=== PATIENT | male | born 1965 | race Caucasian/White ===

== ENCOUNTER 2020-01-23 08:55 | Day surgery (SDC) | payer OTHER ==
[~2020-01-23 08:55] MED LIST: Lactated Ringers 1,000 ML IV SCH; Lidocaine 1%/Sod Bicarbonate in NS 8.4% 1 ML Syringe IDERM PRN; Sodium Chloride 0.9% 10 ML Syringe FLUSH PRN
[2020-01-23] MEDS ORDERED: Bupivacaine 0.5%/EPINEPHrine 1:200,000 50 ML MDV ONE (09:06)
--- NOTE | 2020-01-23 09:47 | PCM.PREANE ---
Preanesthetic Assessment - Procedure Proposed Procedure: Laparoscopic Hernia Repair and Colonoscopy - Anesthesia/Transfusion/Family Hx Anesthesia History: Prior Anesthesia Without Reaction Family History of Anesthesia Reaction: No - Review of Systems General: No Symptoms Pulmonary: No Symptoms, Other (At one point was diagnosed with Sleep Apnea and wore a CPAP for six months. Does not have his machine anymore. Had a home sleep study and felt he didn't need it anymore. ) Cardiovascular: Dyspnea on Exertion (chronic, multifactoral, lasix daily. ECHO done with EF 54%, diastolic dysfunction. ), Other (DE in 2012, stents x2. Cleared by Cardiology for Surgery. ) Gastrointestinal: Abdominal Pain (hernia) Neurological: Pre-Existing Deficit (Chronic Back Pain, back surgery with improvement in pain. ) Other: Reports: None (Obesity: BMI 42. ), Diabetes (Blood glucose 90mg/dl, Type II. ) - Physical Assessment NPO Status Date: 01/23/20 NPO Status Time: 21:00 Vital Signs: Last Vital Signs Temp 36.3 C 01/23/20 09:00 Pulse 54 L 01/23/20 09:00 Resp 16 01/23/20 09:00 BP 119/76 01/23/20 09:00 Pulse Ox 97 01/23/20 09:00 Height: 1.7 m Weight: 122.924 kg ASA Class: 3 Mental Status: Alert & Oriented x3 Airway Class: Mallampati = 3 Dentition: Reports: Missing Tooth/Teeth (All upper teeth missing. ) Thyro-Mental Finger Breadths: 3 Mouth Opening Finger Breadths: 3 ROM/Head Extension: Full Lungs: Clear to Auscultation, Normal Respiratory Effort Cardiovascular: Regular Rate, Regular Rhythm - Lab Values: Laboratory Last Values POC Glucose 90 mg/dL (70-105) 01/23/20 09:16 - Allergies Allergies/Adverse Reactions: Allergies Allergy/AdvReac Type Severity Reaction Status Date / Time codeine Allergy Rash Verified 01/22/20 13:05 meloxicam Allergy Shortness Verified 01/22/20 13:05 of Breath tramadol Allergy Shaking Verified 01/22/20 13:05 - Anesthesia Plan Pre-Op Medication Ordered: Beta Giana Beta Giana: Metoprolol Med Last Dose Date: 01/23/20 Med Last Dose Time: 21:00 - Acknowledgements Anesthesia Type Planned: General Anesthesia Pt an Appropriate Candidate for the Planned Anesthesia: Yes Alternatives and Risks of Anesthesia Discussed w Pt/Guardian: Yes Pt/Guardian Understands and Agrees with Anesthesia Plan: Yes PreAnesthesia Questionnaire HEENT History: Reports: Impaired Vision, Other (See Below) Other HEENT History: wears glasses Cardiovascular History: Reports: Aneurysm, Arrhythmia, CAD, Cardiomyopathy, Heart Failure, Heart Murmur, High Cholesterol, Hypertension, DE, Stents, Other (See Below) Other Cardiovascular History: arrhythmia, palpitations, valvular heart disease Respiratory History: Reports: Sleep Apnea, SOB Gastrointestinal History: Reports: Other (See Below) Other Gastrointestinal History: umbilical hernia, AAA Genitourinary History: Reports: None LEAD SOFTWARE ARCHITECT History: Reports: None Musculoskeletal History: Reports: Arthritis, Back Pain, Chronic Neurological History: Reports: None Psychiatric History: Reports: Depression Endocrine/Metabolic History: Reports: Diabetes, Type II, Obesity/BMI 30+ Hematologic History: Reports: None Immunologic History: Reports: None Oncologic (Cancer) History: Reports: None Dermatologic History: Reports: None - Infectious Disease History Infectious Disease History: Reports: None - Past Surgical History Head Surgeries/Procedures: Reports: None Cardiovascular Surgical History: Reports: None Respiratory Surgical History: Reports: None GI Surgical History: Reports: None Female Surgical History: Reports: None Male Surgical History: Reports: None Endocrine Surgical History: Reports: None Neurological Surgical History: Reports: Laminectomy Musculoskeletal Surgical History: Reports: None Oncologic Surgical History: Reports: None Dermatological Surgical History: Reports: None - SUBSTANCE USE Smoking Status *Q: Former Smoker Recreational Drug Use History: No - HOME MEDS Home Medications: Home Meds Albuterol [Proair HFA] 1 - 2 puff INH Q4H PRN 01/22/20 [History] Aspirin 81 mg PO BID 01/22/20 [History] Empagliflozin [Jardiance] 25 mg PO DAILY 01/22/20 [History] Fish Oil/[place]-3 Fatty Acids [Fish Oil 1,000 MG] 2 gm PO DAILY 01/22/20 [History] Furosemide [Lasix] 40 mg PO DAILY 01/22/20 [History] Insulin Glarg,Human.Rec.Analog [Lantus] 70 units SQ BID 01/22/20 [History] Isosorbide Mononitrate [Imdur] 60 mg PO DAILY 01/22/20 [History] Magnesium 250 mg PO DAILY 01/22/20 [History] Metoprolol Tartrate 100 mg PO BID 01/22/20 [History] Multivitamin 1 tab PO DAILY 01/22/20 [History] Rosuvastatin Calcium 20 mg PO DAILY 01/22/20 [History] Sertraline [Zoloft] 100 mg PO DAILY 01/22/20 [History] Tamsulosin HCl [Flomax] 0.4 mg PO DAILY 01/22/20 [History] lisinopriL [Lisinopril] 40 mg PO DAILY 01/22/20 [History] metFORMIN HCl [Metformin HCl] 1,000 mg PO BID 01/22/20 [History] traZODone HCl [Trazodone HCl] 100 mg PO BEDTIME 01/22/20 [History] - CURRENT (IN HOUSE) MEDS Current Meds: Current Medications Lactated Ringer's (Ringers, Lactated) 1,000 mls @ 125 mls/hr IV ASDIRECTED OMKAR Stop: 01/23/20 23:00 Last Admin: 01/23/20 09:20 Dose: 125 mls/hr Documented by: Lidocaine/Sodium Bicarbonate (Buffered Lidocaine 1% In Ns 8.4%) 0.25 ml IDERM ONETIME PRN PRN Reason: Prior to IV Start Stop: 01/23/20 18:00 Last Admin: 01/23/20 09:18 Dose: 0.25 ml Documented by: Sodium Chloride (Saline Flush) 10 ml FLUSH ASDIRECTED PRN PRN Reason: Keep Vein Open Stop: 01/23/20 18:00 Discontinued Medications Bupivacaine HCl/Epinephrine Bitart (Marcaine 0.5%/Epinephrine 1:200,000) Confirm Administered Dose 50 ml .ROUTE .STK-MED ONE Stop: 01/23/20 09:07
[2020-01-23] MEDS ORDERED: Midazolam 1 MG/ML 2 ML SDV ONE (09:50)
[2020-01-23] MEDS ORDERED: Ondansetron 4 MG/2 ML SDV ONE ×3 (09:50→11:18)
[2020-01-23] MEDS ORDERED: Propofol 200 MG/20 ML SDV ONE (09:50)
[2020-01-23] MEDS ORDERED: Rocuronium 50 MG/5 ML Vial ONE (09:50)
[2020-01-23] MEDS ORDERED: fentaNYL 250 MCG/5 ML SDV ONE (09:51)
[2020-01-23] MEDS ORDERED: Lidocaine 1% 4 ML ONE (09:51)
[2020-01-23] MEDS ORDERED: ePHEDrine Sulfate/0.9% NaCl/Pf 25 MG/5 ML SYRINGE IV ONE ×2 (10:29→11:07)
[2020-01-23] MEDS ORDERED: HYDROmorphone 0.5 MG/0.5 ML Syringe ONE (11:42)
[2020-01-23] MEDS ORDERED: fentaNYL 100 MCG/2 ML SDV IVPUSH PRN (11:49)
[2020-01-23] MEDS ORDERED: HYDROmorphone 0.5 MG/0.5 ML Syringe IVPUSH PRN (11:49)
--- NOTE | 2020-01-23 12:50 | PCM.POSTAN ---
POST ANESTHESIA ASSESSMENT - MENTAL STATUS Mental Status: Alert, Oriented - VITAL SIGNS Vital Signs: Last Vital Signs Temp 97.1 F 01/23/20 12:41 Pulse 54 L 01/23/20 09:00 Resp 16 01/23/20 12:41 BP 125/45 L 01/23/20 12:41 Pulse Ox 97 01/23/20 12:41 - RESPIRATORY Respiratory Status: Respiratory Rate WNL, Airway Patent, O2 Saturation Stable, Supplemental Oxygen - CARDIOVASCULAR CV Status: Pulse Rate WNL, Blood Pressure Stable - GASTROINTESTINAL GI Status: No Symptoms - PAIN Pain Score: 0 - POST OP HYDRATION Hydration Status: Adequate & Stable
[2020-01-23] MEDS ORDERED: Ketorolac 30 MG/ML SDV IVPUSH ONE (13:47)
--- NOTE | 2020-01-23 14:39 | PCM48HPAN ---
Post Anesthesia Note - EVALUATION WITHIN 48HRS OF ANESTHETIC Vital Signs in Normal Range: Yes Patient Participated in Evaluation: Yes Respiratory Function Stable: Yes (still requires O2 2L NC ) Airway Patent: Yes Cardiovascular Function Stable: Yes Hydration Status Stable: Yes Pain Control Satisfactory: Yes Nausea and Vomiting Control Satisfactory: Yes Mental Status Recovered: Yes Vital Signs: Last Vital Signs Temp 97.9 F 01/23/20 14:15 Pulse 74 01/23/20 14:15 Resp 12 01/23/20 14:15 BP 111/68 01/23/20 14:15 Pulse Ox 95 01/23/20 14:15 - COMMENTS/OBSERVATIONS Free Text/Narrative:: No anesthesia complications noted. Patient is going for an extended floor recovery
[2020-01-23] MEDS ORDERED: oxyCODONE 5 MG Tab PO PRN (14:54)
--- NOTE | 2020-01-24 08:30 | PCM.PRNOTE ---
- Free Text/Narrative Note: Date: 01/24/2020 Operation: screening colonoscopy, laparoscopic umbilical hernia repair with mesh Surgeon: Rock Ayala MD Findings: Poor colon prep. 2.5 cm umbilical hernia with incarcerated visceral fat. Detailed Report: The patient was taken to the OR and placed supine. Time out was performed and general endotracheal anesthesia initiated. The abdominal hair was clipped and the abdomen prepped and draped in usual sterile fashion. A Veress needle was inserted at the LUQ for insufflation. Once pressure of 15 mm Hg was reached, pneumoperitoneum was aspirated at the left lateral abdomen. A bladed 5 mm port was inserted at this site, and the 5 mm 30 degree laparoscope inserted. Veress placement resulted in no inadvertent injury, and the needle was removed. Additional 5 mm ports were placed at the LLQ and LUQ. Omental and lipomatous fat was reduced from the umbilical hernia site. Most of the hernia sac was excised as well using the Ligasure. The defect measured 2.5 cm in diameter. A 10 x 15 cm biologic coated permanent mesh was brought onto the field, and anchoring 0 vicryl sutures were placed at the 12, 3, 6, and 9 o'clock positions. The mesh was rolled up and introduced into the abdomen through a 12 mm port that was placed at the umbilicus through the fascial defect. With the mesh in the abdom en, the 12 mm port was removed and the hernia defect was closed transversely with four interrupted 0 PDS sutures placed using the PMI laparoscopic suture passer. Next, the mesh was unfolded and oriented transversely. The 12 mm port was reinserted at a site at the right upper quadrant. The transfascial sutures were secured through small stab incisions in the skin using the PMI suture passer. The mesh appeared to lay nicely, covering the defect. Spaces between the anchoring sutures were tacked to the abdominal wall using the Secure Strap. The RUQ 12 mm port site was closed at the level of fascia using the PMI laparoscopic suture passer and 0 vicryl suture. A total of 50 cc 0.5% marcaine with epinephrine was injected for local anesthetic throughout the case. Ports were removed under laparoscopic visualization and pneumoperitoneum released. All skin incisions were closed with absorbable subcuticular suture and dressed with dermabond. The patient tolerated the procedure well.
[2020-01-24] MEDS ORDERED: Albuterol 6.7 GM Inhaler INH PRN (08:41)
[2020-01-24] MEDS ORDERED: Rosuvastatin 10 MG Tab PO SCH (09:00)
[2020-01-24] MEDS ORDERED: Metoprolol Tartrate 50 MG Tab PO SCH (09:00)
[2020-01-24] MEDS ORDERED: Magnesium Oxide 400 MG Tab PO SCH (09:00)
[2020-01-24] MEDS ORDERED: Aspirin 81 MG Tab.Chew PO SCH (09:00)
[2020-01-24] MEDS ORDERED: Sertraline 50 MG Tab PO SCH (09:00)
[2020-01-24] MEDS ORDERED: Tamsulosin 0.4 MG Cap.ER PO SCH (09:00)
[2020-01-24] MEDS ORDERED: Furosemide 40 MG Tab PO SCH (09:00)
[2020-01-24] MEDS ORDERED: metFORMIN 500 MG Tab PO SCH (09:00)
[2020-01-24] MEDS ORDERED: Isosorbide Mononitrate 60 MG Tab.ER PO SCH (09:00)
[2020-01-24] MEDS ORDERED: Lisinopril 20 MG Tab PO SCH (09:00)
[2020-01-24] MEDS ORDERED: traZODone 50 MG Tab PO SCH (21:00)
--- NOTE | 2020-01-31 08:43 | PCM.PRNOTE ---
- Free Text/Narrative Note: Procedure: screening colonoscopy Detailed Report: Following laparoscopic hernia repair, the patient was positioned for colonoscopy while intubated. The anus appeared normal and digital exam was unremarkable. The prep was very poor. The scope was advanced to about 60 cm, but given the quality of the prep no meaningful exam for polyps was possible. Air was evacuated and the scope withdrawn. The patient was then extubated and transferred to the recovery unit in good condition. Rock Ayala MD General Surgery
== END 2020-01-23 18:07 | disposition home or self-care (01) ==
LOC: JD.SDS 08:55 → JD.MS 15:11 → JD.SDS 18:07
PROVIDERS: ATTEND Surgery
DX: Z12.11 Encounter for screening for malignant neoplasm of colon (principal); K42.0 Umbilical hernia with obstruction, without gangrene; F41.9 Anxiety disorder, unspecified; I11.0 Hypertensive heart disease with heart failure; I50.9 Heart failure, unspecified; I25.10 Atherosclerotic heart disease of native coronary artery without angina pectoris; E11.9 Type 2 diabetes mellitus without complications; E66.9 Obesity, unspecified; Z88.5 Allergy status to narcotic agent; Z88.8 Allergy status to other drugs, medicaments and biological substances; Z79.82 Long term (current) use of aspirin; Z79.84 Long term (current) use of oral hypoglycemic drugs; Z79.899 Other long term (current) drug therapy; Z87.891 Personal history of nicotine dependence; Z68.41 Body mass index [BMI] 40.0-44.9, adult
CPT/HCPCS: 36415; 45330; 49653; 80053; 82962; A9270; C1781; J0171; J1170; J1885; J2001; J2250; J2370; J2405; J2704; J3010; J3490; J7120; 00790

== ENCOUNTER 2021-02-19 16:55 | Emergency (ER) | payer OTHER ==
[2021-02-19] MEDS ORDERED: Famotidine 20 MG/2 ML SDV IVPUSH PRN (18:03)
[2021-02-19] MEDS ORDERED: methylPREDNISolone Sodium Succinate 125 MG/2 ML SDV IVPUSH PRN (18:03)
[2021-02-19] MEDS ORDERED: diphenhydrAMINE 50 MG/ML SDV IVPUSH PRN (18:03)
[2021-02-19] MEDS ORDERED: EPINEPHrine 1 MG/ML SDV IM PRN (18:03)
[2021-02-19] MEDS ORDERED: Sodium Chloride 0.9% 10 ML Syringe FLUSH SCH (18:15)
--- NOTE | 2021-02-19 19:00 | EDM.PDOC ---
ED HPI GENERAL MEDICAL PROBLEM - General Chief Complaint: Respiratory Problem Stated Complaint: COVID +/WORSENING SYMPTOMS Time Seen by Provider: 02/19/21 17:33 Source of Information: Reports: Patient, RN Notes Reviewed History Limitations: Reports: No Limitations - History of Present Illness INITIAL COMMENTS - FREE TEXT/NARRATIVE: Patient is a 55-year-old male presenting to the emergency department with complaints of worsening Covid symptoms. Reports symptoms began 1 week ago. He was diagnosed yesterday at the drive-through testing. He complains of fever, chills, diarrhea, cough, shortness of breath. Denies any significant chest pain. He would like to receive treatment with monoclonal antibodies. - Related Data Allergies Allergy/AdvReac Type Severity Reaction Status Date / Time codeine Allergy Rash Verified 02/19/21 17:19 meloxicam Allergy Shortness Verified 02/19/21 17:19 of Breath tramadol AdvReac Shaking Verified 02/19/21 17:19 Home Meds: Home Meds Aspirin 81 mg PO BID 01/22/20 [History] Empagliflozin [Jardiance] 25 mg PO DAILY 01/22/20 [History] Insulin Glarg,Human.Rec.Analog [Lantus] 70 units SQ BID 01/22/20 [History] Isosorbide Mononitrate [Imdur] 60 mg PO DAILY 01/22/20 [History] Magnesium 250 mg PO DAILY 01/22/20 [History] Metoprolol Tartrate 100 mg PO BID 01/22/20 [History] Multivitamin 1 tab PO DAILY 01/22/20 [History] Rosuvastatin Calcium 20 mg PO DAILY 01/22/20 [History] Sertraline [Zoloft] 100 mg PO DAILY 01/22/20 [History] metFORMIN HCl [Metformin HCl] 1,000 mg PO BID 01/22/20 [History] traZODone HCl [Trazodone HCl] 100 mg PO BEDTIME 01/22/20 [History] dexAMETHasone [Decadron] 6 mg PO DAILY #4 tablet 02/19/21 [Rx] Past Medical History HEENT History: Reports: Impaired Vision, Other (See Below) Other HEENT History: wears glasses Cardiovascular History: Reports: Aneurysm, Arrhythmia, CAD, Cardiomyopathy, Heart Failure, Heart Murmur, High Cholesterol, Hypertension, [place], Stents, Other (See Below) Other Cardiovascular History: arrhythmia, palpitations, valvular heart disease Respiratory History: Reports: Sleep Apnea, SOB Gastrointestinal History: Reports: Other (See Below) Other Gastrointestinal History: umbilical hernia, AAA Genitourinary History: Reports: None MEDICAL REIMBURSEMENT SPECIALIST History: Reports: None Musculoskeletal History: Reports: Arthritis, Back Pain, Chronic Neurological History: Reports: None Psychiatric History: Reports: Depression Endocrine/Metabolic History: Reports: Diabetes, Type II, Obesity/BMI 30+ Hematologic History: Reports: None Immunologic History: Reports: None Oncologic (Cancer) History: Reports: None Dermatologic History: Reports: None - Infectious Disease History Infectious Disease History: Reports: None, Novel Coronavirus - Past Surgical History Head Surgeries/Procedures: Reports: None Cardiovascular Surgical History: Reports: None Respiratory Surgical History: Reports: None GI Surgical History: Reports: None Male Surgical History: Reports: None Endocrine Surgical History: Reports: None Neurological Surgical History: Reports: Laminectomy Musculoskeletal Surgical History: Reports: None Oncologic Surgical History: Reports: None Dermatological Surgical History: Reports: None Social & Family History - Tobacco Use Tobacco Use Status *Q: Never Tobacco User Second Hand Smoke Exposure: No - Caffeine Use Caffeine Use: Reports: None - Recreational Drug Use Recreational Drug Use: No ED ROS GENERAL - Review of Systems Review Of Systems: See Below Constitutional: Reports: Fever, Chills, Fatigue, Decreased Appetite HEENT: Reports: No Symptoms Respiratory: Reports: Shortness of Breath, Cough. Denies: Wheezing, Pleuritic Chest Pain Cardiovascular: Reports: Dyspnea on Exertion. Denies: Chest Pain, Lightheadedness Endocrine: Reports: No Symptoms GI/Abdominal: Reports: Diarrhea. Denies: Abdominal Pain, Nausea, Vomiting : Reports: No Symptoms Musculoskeletal: Reports: No Symptoms Skin: Reports: No Symptoms Neurological: Denies: Confusion, Dizziness Psychiatric: Reports: No Symptoms Hematologic/Lymphatic: Reports: No Symptoms Immunologic: Reports: No Symptoms ED EXAM, GENERAL - Physical Exam Exam: See Below Exam Limited By: No Limitations General Appearance: Alert, WD/WN, No Apparent Distress Respiratory/Chest: No Respiratory Distress, Lungs Clear, Normal Breath Sounds, No Accessory Muscle Use, Chest Non-Tender, Other (harsh cough with deep breathing) Cardiovascular: Normal Peripheral Pulses, Regular Rate, Rhythm, No Edema, No Gallop, No JVD, No Murmur, No Rub GI/Abdominal: Normal Bowel Sounds, Soft, Non-Tender, No Organomegaly, No Distention, No Abnormal Bruit, No Mass Neurological: Alert, Oriented, CN II-XII Intact, Normal Cognition, Normal Gait, Normal Reflexes, No Motor/Sensory Deficits Psychiatric: Normal Affect, Normal Mood Skin Exam: Warm, Dry, Intact, Normal Color, No Rash Course - Vital Signs Last Recorded V/S: Last Vital Signs Temp 96.9 F 02/19/21 17:18 Pulse 68 02/19/21 17:18 Resp 18 02/19/21 17:18 BP 176/73 H 02/19/21 17:18 Pulse Ox 95 02/19/21 17:18 - Orders/Labs/Meds Orders: Active Orders 24 hr Category Date Time Status Vital Signs [RC] Q15M Care 02/19/21 18:03 Active Chest 1V Frontal [CR] Stat Exams 02/19/21 17:34 Taken EPINEPHrine [Adrenalin] Med 02/19/21 18:03 Active 0.3 mg IM ONETIME PRN Famotidine [Pepcid] Med 02/19/21 18:03 Active 20 mg IVPUSH ONETIME PRN Sodium Chloride 0.9% [Saline Flush] Med 02/19/21 18:15 Active 30 ml FLUSH ASDIRECTED diphenhydrAMINE [Benadryl] Med 02/19/21 18:03 Active 50 mg IVPUSH ONETIME PRN methylPREDNISolone Sod Succ [Solu-MEDROL] Med 02/19/21 18:03 Active 125 mg IVPUSH ONETIME PRN Medication Orders Diphenhydramine HCl (Diphenhydramine 50 Mg/Ml Sdv) 50 mg IVPUSH ONETIME PRN PRN Reason: hypersensitivity reaction Epinephrine HCl (Epinephrine 1 Mg/Ml Sdv) 0.3 mg IM ONETIME PRN PRN Reason: hypersensitivity reaction Famotidine (Famotidine 20 Mg/2 Ml Sdv) 20 mg IVPUSH ONETIME PRN PRN Reason: hypersensitivity reaction Methylprednisolone Sodium Succinate (Methylprednisolone Sodium Succinate 125 Mg/2 Ml Sdv) 125 mg IVPUSH ONETIME PRN PRN Reason: hypersensitivity reaction Sodium Chloride (Sodium Chloride 0.9% 10 Ml Syringe) 30 ml FLUSH ASDIRECTED OMKAR Labs: Laboratory Tests 02/19/21 02/19/21 02/19/21 Range/Units 17:30 17:30 17:30 WBC 5.18 (4.23-9.07) K/mm3 RBC 4.83 (4.63-6.08) M/mm3 Hgb 14.4 (13.7-17.5) gm/dl Hct 44.7 (40.1-51.0) % MCV 92.5 H (79.0-92.2) fl MCH 29.8 (25.7-32.2) pg MCHC 32.2 (32.2-35.5) g/dl RDW Std Deviation 45.5 H (35.1-43.9) fL Plt Count 202 (163-337) K/mm3 MPV 9.6 (9.4-12.3) fl Neut % (Auto) 70.9 H (34.0-67.9) % Lymph % (Auto) 15.6 L (21.8-53.1) % [place] % (Auto) 12.5 H (5.3-12.2) % Eos % (Auto) 0.8 (0.8-7.0) Baso % (Auto) 0.2 (0.1-1.2) % Neut # (Auto) 3.67 (1.78-5.38) K/mm3 Lymph # (Auto) 0.81 L (1.32-3.57) K/mm3 [place] # (Auto) 0.65 (0.30-0.82) K/mm3 Eos # (Auto) 0.04 (0.04-0.54) K/mm3 Baso # (Auto) 0.01 (0.01-0.08) K/mm3 D-Dimer, Quantitative 0.83 H (0.19-0.50) mg/L Sodium 137 (136-145) mEq/L Potassium 4.1 (3.5-5.1) mEq/L Chloride 101 (98-107) mEq/L Carbon Dioxide 25 (21-32) mEq/L Anion Gap 15.1 H (5-15) BUN 18 (7-18) mg/dL Creatinine 1.0 (0.7-1.3) mg/dL Est Cr Clr Drug Dosing 77.09 mL/min Estimated GFR (MDRD) > 60 (>60) mL/min BUN/Creatinine Ratio 18.0 (14-18) Glucose 103 H (70-99) mg/dL Calcium 8.4 L (8.5-10.1) mg/dL Total Bilirubin 0.5 (0.2-1.0) mg/dL AST 19 (15-37) U/L ALT 26 (16-63) U/L Alkaline Phosphatase 57 (46-116) U/L Troponin I < 0.017 (0.00-0.056) ng/mL C-Reactive Protein 7.7 H* (<1.0) mg/dL Total Protein 7.3 (6.4-8.2) g/dl Albumin 3.5 (3.4-5.0) g/dl Globulin 3.8 gm/dL Albumin/Globulin Ratio 0.9 L (1-2) Meds: Medications Generic Name Dose Route Start Last Admin Trade Name Freq PRN Reason Stop Dose Admin Diphenhydramine HCl 50 mg 02/19/21 18:03 Diphenhydramine 50 Mg/Ml Sdv IVPUSH ONETIME PRN hypersensitivity reaction Epinephrine HCl 0.3 mg 02/19/21 18:03 Epinephrine 1 Mg/Ml Sdv IM ONETIME PRN hypersensitivity reaction Famotidine 20 mg 02/19/21 18:03 Famotidine 20 Mg/2 Ml Sdv IVPUSH ONETIME PRN hypersensitivity reaction Methylprednisolone Sodium Succinate 125 mg 02/19/21 18:03 Methylprednisolone Sodium Succinate 125 Mg/2 Ml Sdv IVPUSH ONETIME PRN hypersensitivity reaction Sodium Chloride 30 ml 02/19/21 18:15 Sodium Chloride 0.9% 10 Ml Syringe FLUSH ASDIRECTED OMKAR Discontinued Medications Generic Name Dose Route Start Last Admin Trade Name Freq PRN Reason Stop Dose Admin CASIRIVIMAB/IMDEVIMAB 10 ml/ 110 mls @ 220 mls/hr 02/19/21 18:03 02/19/21 18:25 Sodium Chloride IV 02/19/21 18:32 220 mls/hr ONETIME ONE Administration - Re-Assessments/Exams Free Text/Narrative Re-Assessment/Exam: 02/19/21 1804 Hematology significant for D-dimer elevated 0.83, CRP 7.7. Troponin is undetectably low. Elevation in CRP and D-dimer as expected with Covid diagnosis. Chest x-ray shows evidence of mild Covid pneumonia. I spoke with patient to provide information about Regeneron treatment for patient I offered them the ``Patient and Caregiver SPIKE [employer] Fact Sheet to read and review I stated the drug has been approved by an emergency use authorization (EUA) process and has not fully been FDA reviewed or approved The patient meets the EUA requirements I discussed there are other potential treatment options that are currently not FDA approved to treat COVID-19. Offered opportunity to ask questions and all questions were answered Patient voiced understanding and agreed to proceed with treatment for patient. 02/19/21 20:20 Pt completed infusion and waiting period without adverse effect. He will be given a first dose of dexamethasone on d/c and a prescription will be sent. Discussed return precautions. Discharge instructions as documented. Departure - Departure Time of Disposition: 20:20 Disposition: Home, Self-Care 01 Condition: Good Clinical Impression: COVID-19 - Discharge Information *PRESCRIPTION DRUG MONITORING PROGRAM REVIEWED*: No *COPY OF PRESCRIPTION DRUG MONITORING REPORT IN PATIENT TAYO: No Prescriptions: dexAMETHasone [Decadron] 6 mg PO DAILY #4 tablet Referrals: Estella Sparks MD [Primary Care Provider] - Forms: ED Department Discharge Additional Instructions: You were seen in the emergency department today for evaluation with regards to COVID-19 symptoms. Work-up included chest x-ray, blood work, EKG. Results of chest x-ray showed mild Covid pneumonia. Blood work was otherwise normal given a diagnosis of COVID-19. While in the ER, you received infusion of monoclonal antibodies as well as your first dose of dexamethasone. Prescription for this medication has also been sent to your pharmacy. Take it as prescribed. Recommend obtaining an lxot-[id number]-pysixfy home pulse oximeter checking your oxygen saturations intermittently. If you are maintaining a saturation below 90% or you experience any other new or worsening symptoms, please do not hesitate to return to the emergency department for reevaluation. Sepsis Event Note (ED) - Focused Exam Vital Signs: Vital Signs Temp Pulse Resp BP Pulse Ox 02/19/21 17:18 96.9 F 68 18 176/73 H 95 - My Orders Last 24 Hours: My Active Orders 02/19/21 17:34 Chest 1V Frontal [CR] Stat 02/19/21 18:03 Vital Signs [RC] Q15M EPINEPHrine [Adrenalin] 0.3 mg IM ONETIME PRN Famotidine [Pepcid] 20 mg IVPUSH ONETIME PRN diphenhydrAMINE [Benadryl] 50 mg IVPUSH ONETIME PRN methylPREDNISolone Sod Succ [Solu-MEDROL] 125 mg IVPUSH ONETIME PRN 02/19/21 18:15 Sodium Chloride 0.9% [Saline Flush] 30 ml FLUSH ASDIRECTED - Assessment/Plan Last 24 Hours: My Active Orders 02/19/21 17:34 Chest 1V Frontal [CR] Stat 02/19/21 18:03 Vital Signs [RC] Q15M EPINEPHrine [Adrenalin] 0.3 mg IM ONETIME PRN Famotidine [Pepcid] 20 mg IVPUSH ONETIME PRN diphenhydrAMINE [Benadryl] 50 mg IVPUSH ONETIME PRN methylPREDNISolone Sod Succ [Solu-MEDROL] 125 mg IVPUSH ONETIME PRN 02/19/21 18:15 Sodium Chloride 0.9% [Saline Flush] 30 ml FLUSH ASDIRECTED
[2021-02-19] MEDS ORDERED: Dexamethasone 4 MG Tab PO ONE (20:13)
--- NOTE | 2021-02-20 07:50 | CR ---
Chest: Portable AP view of the chest was obtained. Comparison: No prior chest x-ray is available, prior chest CT study performed on 12/22/20. Heart is enlarged. Upper mediastinum is normal. Lungs are clear with no acute parenchymal change. Bony structures show nothing acute. Impression: 1. Heart is slightly enlarged. Difficult to exclude pericardial effusion. 2. Nothing acute is otherwise seen on portable chest x-ray. Diagnostic code #2
== END 2021-02-19 20:25 | disposition home or self-care (01) ==
LOC: JD.ED 16:55
DX: U07.1 COVID-19 (principal); I25.10 Atherosclerotic heart disease of native coronary artery without angina pectoris; I11.0 Hypertensive heart disease with heart failure; I50.9 Heart failure, unspecified; E78.00 Pure hypercholesterolemia, unspecified; I25.2 Old myocardial infarction; E11.9 Type 2 diabetes mellitus without complications; E66.9 Obesity, unspecified; Z68.41 Body mass index [BMI] 40.0-44.9, adult; Z79.84 Long term (current) use of oral hypoglycemic drugs; Z86.16 Personal history of COVID-19; Z95.5 Presence of coronary angioplasty implant and graft; Z88.5 Allergy status to narcotic agent; Z79.82 Long term (current) use of aspirin
CPT/HCPCS: 36415; 71045; 80053; 84484; 85025; 85379; 86140; 99285; J8540; M0243; Q0243